=== PATIENT | male | born 1965 | race Caucasian/White ===

== ENCOUNTER 2024-12-23 09:54 | Emergency (ER) | payer MEDICAID ==
[~2024-12-23] VITALS: Ht 172.7 cm; Wt 91.0 kg
[2024-12-23 10:00] VITALS: O2SAT 98
[2024-12-23] MEDS: ONDANSETRON HCL 4MG/2ML INJ IV ONE (10:48)
[2024-12-23 10:51] LABS: BASOPHILS % 0.7 % (0.0-2.0); EOSINOPHILS % 0.5 % (0.0-5.0); HEMOGLOBIN. 16.2 g/dL (14.0-18.0); LYMPHOCYTES % 26.8 % (20.0-50.0); MEAN CORPUSCULAR HEMOGLOBIN 29.7 pg (28.0-32.0); MEAN CORPUSCULAR HGB CONC 33.1 g/dL (31.0-37.0); MEAN CORPUSCULAR VOLUME 89.7 fL (80.0-94.0); MEAN PLATELET VOLUME 7.7 fl (7.4-10.4); MONOCYTES % 5.7 % (2.0-8.0); NEUTROPHILS % 66.3 % (40.0-76.0); PLATELET 218 x1000/uL (130-400); RED BLOOD CELL COUNT 5.46 mill/uL (4.7-6.1); RED CELL DISTRIBUTION WIDTH 13.7 % (11.6-14.6); WHITE BLOOD COUNT 5.7 x1000/uL (4.5-11.0)
[2024-12-23] MEDS: MECLIZINE 25MG TABLET PO ONE (10:52)
[2024-12-23 10:58] LABS: CHLORIDE 98 mEq/L (98-107); POTASSIUM 3.8 mEq/L (3.5-5.1); SODIUM 137 mEq/L (136-145)
[2024-12-23 10:59] LABS: CALCIUM 9.1 mg/dL (8.7-10.4); CARBON DIOXIDE 27 mEq/L (21-32)
[2024-12-23 11:04] LABS: CREATININE 0.8 mg/dL (0.6-1.3); GLUCOSE 192 mg/dL (70-105); UREA NITROGEN BLOOD 12 mg/dL (9-23)
[2024-12-23 11:06] LABS: ALANINE AMINOTRANSFERASE 34 IU/L (10-49); ALBUMIN 4.7 g/dL (3.2-4.8); ASPARTATE AMINOTRANSFERASE 23 IU/L (<34); BILIRUBIN DIRECT 0.3 mg/dL (<=3.0); PROTEIN TOTAL 7.8 g/dL (6.0-8.3)
[2024-12-23 11:09] LABS: TROPONIN I HIGH SENSITIVITY < 4 ng/L (3.0-53)
[2024-12-23 14:41] VITALS: BP 158/77; PULSE 83; RESP 18; TEMP 36.4; O2SAT 98
== END 2024-12-23 15:11 | disposition short-term general hospital (02) ==
LOC: ER 09:54
DX: R42 Dizziness and giddiness (principal); R11.2 Nausea with vomiting, unspecified
CPT/HCPCS: 99285; 96374; 70450; 71045; 80076; 80048; 85025; 84484; 36415; 93005; J8597; J2405